=== PATIENT | male | born 1995 | race Caucasian/White ===

== ENCOUNTER 2018-07-24 08:03 | Emergency (ER) | END 2018-07-24 08:52 | disposition home or self-care (01) ==

== ENCOUNTER 2018-12-08 21:05 | Emergency (ER) | payer OTHER ==
[~2018-12-08] VITALS: Ht 177.8 cm; Wt 101.0 kg
[~2018-12-08 21:05] MED LIST: BENZ-6 PO; DENIES; NAPR-985 PO; TRAM50TA2 PO
[2018-12-08 21:21] VITALS: Ht 177.8 cm; Wt 101.0 kg
--- NOTE | 2018-12-08 22:20 | ERD ---
ER Documentation Chief Complaint Chief Complaint R eye red/ pain/ swell p hit by baseball Friday. blurry vision. HPI This is a 23-year-old male patient who presents to the emergency room with complaint of redness to right eye he was hit in the eye with a baseball 3 days ago now has blurred vision. No chronic medical problems. Mild pain. Patient presents with both eyes open, good eye contact, tracks appropriately. ROS All systems reviewed and are negative except as per history of present illness. Medications Home Meds Active Scripts Benzonatate* (Tessalon Perle*) 100 Mg Capsule, 100 MG PO Q8H PRN for COUGH, #20 CAP Prov:KAITLIN RAMIREZ PA-C 07/24/18 Naproxen* (Naprosyn*) 500 Mg Tablet, 500 MG PO BID PRN for PAIN AND/OR INFLAMMATION, #30 TAB Prov:ERIKA REBOLLEDO PA-C 04/02/16 Tramadol HCl (Tramadol HCl) 50 Mg Tablet, 50 MG PO Q4 PRN for PAIN, #20 TAB Prov:ERIAK REBOLLEDO PA-C 04/02/16 Reported Medications [Denies] No Conflict Check 10/22/09 Allergies Allergies: Coded Allergies: No Known Drug Allergies (Verified Allergy, Mild, 04/02/16) PMhx/Soc History of Surgery: Yes (left arm with screws) Anesthesia Reaction: No Hx Neurological Disorder: No Hx Respiratory Disorders: No Hx Cardiac Disorders: No Hx Psychiatric Problems: No Hx Miscellaneous Medical Probl: No Hx Alcohol Use: No Hx Substance Use: No Hx Tobacco Use: No Smoking Status: Never smoker FmHx Family History: No diabetes, No coronary disease, No other Physical Exam Vitals Vital Signs Date Temp Pulse Resp B/P (MAP) Pulse Ox O2 O2 Flow FiO2 Time Delivery Rate 12/08/18 98.1 101 22 128/71 99 21:21 (90) Physical Exam Const: No acute distress Head: Atraumatic, ecchymosis of upper and lower eyelid of right eye, no swelling Eyes: Normal Conjunctiva, PERRL, EOMI ENT: Normal External Ears, Nose and Mouth. Neck: Full range of motion. No meningismus. Resp: Clear to auscultation bilaterally Cardio: Regular rate and rhythm, no murmurs Abd: Soft, non tender, non distended. Normal bowel sounds Skin: No petechiae or rashes Ext: No cyanosis, or edema Neur: Awake and alert, CNII-XII Psych: Normal Mood and Affect Result Diagram: 12/09/18 0110 Results 24 hrs Laboratory Tests Test 12/09/18 01:10 Sodium Level 144 mmol/L Potassium Level 4.3 mmol/L Chloride Level 106 mmol/L Carbon Dioxide Level 27 mmol/L Anion Gap 11 Blood Urea Nitrogen 13 mg/dl Creatinine 0.89 mg/dl Est Glomerular Filtrat Rate mL/min > 60 mL/min Glucose Level 110 mg/dl Calcium Level 9.6 mg/dl Total Bilirubin 0.9 mg/dl Direct Bilirubin 0.00 mg/dl Indirect Bilirubin 0.9 mg/dl Aspartate Amino Transf (AST/SGOT) 54 IU/L Alanine Aminotransferase (ALT/SGPT) 97 IU/L Alkaline Phosphatase 106 IU/L Total Protein 8.5 g/dl Albumin 4.7 g/dl Globulin 3.80 g/dl Albumin/Globulin Ratio 1.23 Current Medications Medications Dose Sig/Chichi Start Time Status Last (Trade) Ordered Route PRN Stop Time Admin Dose Reason Admin Fluorescein 1 strip ONCE ONCE 12/08/18 DC Sodium RIGHT EYE 22:30 ([id number]-H-Zfcz 12/08/18 22:31 p) Tetracaine 1 drop ONCE ONCE 12/08/18 DC HCl RIGHT EYE 22:30 (Tetracaine 12/08/18 22:31 0.5% Steri-Unit Hermelinda) Irrigating 1 applic ONCE ONCE 12/08/18 DC 12/08/18 Solution RIGHT EYE 23:00 23:50 (Eye Wash) 12/08/18 23:01 Polymyxin/ 1 drop ONCE ONCE 12/09/18 DC 12/09/18 Trimethoprim BOTH EYES 03:00 03:18 Sulfate 12/09/18 03:01 (Polytrim Oph) Procedures/MDM This is a 23-year-old male patient who presents to the emergency room with eye trauma sustained with baseball 3 days ago. ED COURSE: The patient was stable throughout ED course. DIAGNOSTIC IMAGING: US: Increased echogenicity in the vitreous chambers of bilateral globes posteriorly may be due to vitreous hemorrhage or side lobe artifact. Clinical correlation is advised. Negative for evidence of retinal or choroidal detachment in the right globe. CT:Fractures of the right lamina papyracea and orbital floor with up to 0.6 cm and 0.2 cm of depression respectively. 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 The right medial rectus muscle extends within the fracture site without definite entrapment although clinical correlation is suggested for confirmation. Paranasal sinus disease. Read by radiologist. PROCEDURES: VISUAL ACUITY OS:20/20 OD: 20/15 OU: 20/13 TONOMETRY R: 16 mmHg L: 18 mmHg FLUORESCEIN STAIN No corneal abrasion observed, few conjunctival scratches, no stained drainage or eye contents Small FB noted to superior and center of cornea, eye copiously irrigated with ophthalmic saline rinse. Repeat fluorescein stain negative for FB. Patient reports improved comfort in eye after irrigation. MEDICATIONS GIVEN: Tetracaine. Patient declines analgesia. MDM: 03:32: CT reading necessitating transfer to higher level of care. Case discussed with Dr. Salinas who will take over the case. Plan of care discussed with patient who verbalizes understanding for need for transfer. Pt states pain is improved at this time, pt without dizzines or headache, vision unchanged, eye with only minor discomfort at this time. Departure Diagnosis: Primary Impression: Eye injury Condition: Stable Patient Instructions: Contusion, Eye Referrals: [facility] RIGOBERTO ELLIS NP Dec 08, 2018 22:20
[2018-12-08] MEDS ORDERED: TETRACAINE 0.5% 4 ML OPH RIGHT EYE ONE (22:30)
[2018-12-08] MEDS ORDERED: FLUORESCEIN STRIP RIGHT EYE ONE (22:30)
[2018-12-08] MEDS ORDERED: OPHTHALMIC IRRIG SOLUTION 120 ML RIGHT EYE ONE (23:00)
[2018-12-09] MEDS ORDERED: POLYMYXIN/TRIMETHOPRIM 10 ML OPH BOTH EYES ONE (03:00)
[2018-12-09] MEDS ORDERED: DIPHTH/TET/ACEL PERTUSS (ADULT) 0.5 ML VIAL IM* ONE (03:30)
--- NOTE | 2018-12-09 03:43 | EN ---
Date/Time of Note Date/Time of Note DATE: 12/09/18 TIME: 03:42 (JAZMINE CLARK) ER Progress Note Care was transferred to co by a mid-level provider in ER 2. Given medial rectus entrapment, and optic nerve damage, patient will need to be admitted to high- level care facility with ophthalmology. Currently pending transfer. At this time [facility] has no beds. Other local [facility] are being called by unit trust manager. (JAZMINE CLARK) Assumed care at [address] Victoria at [facility], who accepted the patient for a trauma higher level of care. Patient was transferred in stable condition (SARAH YE) JAZMINE CLARK Dec 09, 2018 03:43 SARAH YE Dec 09, 2018 09:05
[2018-12-09 09:40] VITALS: BP 133/89; PULSE 69; RESP 16
== END 2018-12-09 09:42 | disposition short-term general hospital (02) ==
LOC: FTE 21:05 → E/R 12-09 09:42
DX: S00.11XA Contusion of right eyelid and periocular area, initial encounter (principal); W21.03XA Struck by baseball, initial encounter; Y92.9 Unspecified place or not applicable; Z23 Encounter for immunization
CPT/HCPCS: 70480; 76536; 80053; 90471; 90715; Z7502; Z7610